=== PATIENT | male | born 1950 ===

== ENCOUNTER → 2024-04-27 08:30 | Outpatient (BNVA) | payer MEDICARE, SELFPAY | PROVIDERS: PCP Family Medicine; Referring Provider Family Medicine; Visit Provider Nurse Practitioner Gerontology ==

== ENCOUNTER 2024-04-27 11:14 | Outpatient (CLI) | payer MEDICARE, SELFPAY ==
[2024-04-27 18:44] LABS: PSA, Diagnostic 3.9 ng/mL (<=6.5)
== END 2024-04-27 11:15 | disposition home or self-care (01) ==
LOC: LBO 11:14
PROVIDERS: PCP Family Medicine; Visit Provider Nurse Practitioner Gerontology
DX: N40.1 Benign prostatic hyperplasia with lower urinary tract symptoms (principal); R97.20 Elevated prostate specific antigen [PSA]
CPT/HCPCS: 36415; 51798; 81003; 99205; 84153